=== PATIENT | male | born 1990 | race African-American/Black ===

== ENCOUNTER 2023-04-12 23:40 | Emergency (ER) | payer MEDICAID, OTHER ==
[~2023-04-12] VITALS: Ht 177.8 cm; Wt 87.0 kg
[2023-04-13] MEDS ORDERED: CEPHALEXIN 250MG CAPSULE PO ONE (00:45)
[2023-04-13] MEDS ORDERED: TETANUS, DIPHTHERIA, PERTUSSIS VAC/PF 0.5ML (>10YR OLD) IM ONE (00:45)
[2023-04-13] MEDS ORDERED: SULFAMETHOXAZOLE/TRIMETHOPRIM 800/160MG TABLET PO ONE (00:45)
[2023-04-13] MEDS ORDERED: SULF1TAB48 MT (02:10)
[2023-04-13] MEDS ORDERED: CEPH500C2 MT (02:10)
[2023-04-13 02:16] VITALS: BP 123/69
[2023-04-14] MEDS ORDERED: SILV50CR31 TP (23:58)
== END 2023-04-13 02:18 | disposition home or self-care (01) ==
LOC: ER 23:40
DX: T22.111A Burn of first degree of right forearm, initial encounter (principal); X08.8XXA Exposure to other specified smoke, fire and flames, initial encounter; Y93.89 Activity, other specified; Y92.89 Other specified places as the place of occurrence of the external cause; Y99.8 Other external cause status
CPT/HCPCS: 90471; 90715; 99283

== ENCOUNTER 2023-04-14 23:39 | Emergency (ER) | payer MEDICAID, OTHER ==
[~2023-04-14] VITALS: Ht 177.8 cm; Wt 90.2 kg
[~2023-04-14 23:39] MED LIST: CEPH500C2 MT; SULF1TAB48 MT
[2023-04-14 23:46] VITALS: BP 129/71
[2023-04-14] MEDS ORDERED: SILV50CR31 TP (23:58)
== END 2023-04-15 01:30 | disposition home or self-care (01) ==
LOC: ER 23:39
DX: T22.011D Burn of unspecified degree of right forearm, subsequent encounter (principal); X58.XXXD Exposure to other specified factors, subsequent encounter
CPT/HCPCS: 99281; 99283

== ENCOUNTER 2023-08-04 23:09 | Emergency (ER) | payer SELFPAY ==
[~2023-08-04] VITALS: Ht 177.8 cm; Wt 92.0 kg
[~2023-08-04 23:09] MED LIST changes: +SILV50CR31 TP
[2023-08-04] MEDS ORDERED: CEFTRIAXONE SODIUM 1 G/VIAL IM ONE (23:30)
[2023-08-04 23:42] VITALS: BP 124/74; PULSE 78; RESP 18; TEMP 98.3; O2SAT 99
[2023-08-05 00:13] LABS: CLARITY URINE TURBID (CLEAR); COLOR URINE YELLOW (YELLOW); GLUCOSE URINE NEGATIVE (NEGATIVE); KETONES URINE TRACE (NEGATIVE); LEUKOCYTE ESTERASE URINE 3+ (NEGATIVE); NITRITE URINE NEGATIVE (NEGATIVE); OCCULT BLOOD URINE TRACE (NEGATIVE); PROTEIN URINE NEGATIVE (NEGATIVE); SPECIFIC GRAVITY URINE 1.021 (1.005-1.030)
[2023-08-05] MEDS ORDERED: DOXY100C5 MT (00:20)
[2023-08-05 02:35] LABS: SQUAMOUS EPITHELIAL CELL URINE NONE SEEN /lpf (RARE/1+); WBC URINE TNTC /hpf (0-2)
[2023-08-05 02:38] LABS: BACTERIA URINE TRACE
== END 2023-08-05 01:56 | disposition home or self-care (01) ==
LOC: ER 23:09
DX: A64 Unspecified sexually transmitted disease (principal); F19.90 Other psychoactive substance use, unspecified, uncomplicated; Z20.2 Contact with and (suspected) exposure to infections with a predominantly sexual mode of transmission
CPT/HCPCS: 99283; 96372; 81003; 87086; J0696

== ENCOUNTER 2023-09-12 13:08 | Emergency (ER) | payer MEDICAID ==
[~2023-09-12] VITALS: Ht 177.8 cm; Wt 92.3 kg
[~2023-09-12 13:08] MED LIST changes: +DOXY100C5 MT
[2023-09-12 13:40] VITALS: O2SAT 97
[2023-09-12] MEDS ORDERED: DOXYCYCLINE HYCLATE 100MG CAPSULE PO ONE (14:45)
[2023-09-12] MEDS ORDERED: CEFTRIAXONE SODIUM 500 MG/VIAL IM ONE (14:45)
[2023-09-12] MEDS ORDERED: DOXY100C5 MT (15:49)
[2023-09-12 16:05] VITALS: BP 129/84; PULSE 82; RESP 19; TEMP 98.1
[2023-09-14 05:11] LABS: HIV SCREEN 4G Non Reactive (Non Reactive)
== END 2023-09-12 16:07 | disposition home or self-care (01) ==
LOC: ER 13:45
DX: Z11.3 Encounter for screening for infections with a predominantly sexual mode of transmission (principal)
CPT/HCPCS: 99283; 86592; 87389; 96372; J0696

== ENCOUNTER 2024-06-22 06:44 | Emergency (ER) | payer MEDICAID ==
[~2024-06-22] VITALS: Ht 177.8 cm; Wt 91.0 kg
[2024-06-22 07:10] VITALS: O2SAT 98
[2024-06-22] MEDS: IBUPROFEN 600MG TABLET PO NR (09:08)
[2024-06-22] MEDS ORDERED: IBUP-2029 MT (09:43)
[2024-06-22 09:53] VITALS: BP 148/90; PULSE 84; RESP 15; TEMP 98.1
== END 2024-06-22 09:55 | disposition home or self-care (01) ==
LOC: ER 06:44
DX: S62.300A Unspecified fracture of second metacarpal bone, right hand, initial encounter for closed fracture (principal); Z79.899 Other long term (current) drug therapy; X58.XXXA Exposure to other specified factors, initial encounter; Y93.89 Activity, other specified; Y92.89 Other specified places as the place of occurrence of the external cause; Y99.8 Other external cause status
CPT/HCPCS: 29125; 73130; 99283

== ENCOUNTER 2024-08-07 03:00 | Emergency (ER) | payer MEDICAID ==
[~2024-08-07] VITALS: Ht 180.3 cm; Wt 86.5 kg
[~2024-08-07 03:00] MED LIST changes: +IBUP-2029 MT
[2024-08-07 03:04] VITALS: TEMP 98.4; O2SAT 100
[2024-08-07 03:16] VITALS: O2SAT 98
[2024-08-07 04:18] VITALS: BP 140/94; PULSE 113; RESP 20
[2024-08-07] MEDS: IBUPROFEN 400MG TABLET PO NR (04:18)
[2024-08-07] MEDS ORDERED: NAPR-420 MT (06:07)
== END 2024-08-07 06:34 | disposition home or self-care (01) ==
LOC: ER 03:08
DX: S62.300A Unspecified fracture of second metacarpal bone, right hand, initial encounter for closed fracture (principal); Z00.00 Encounter for general adult medical examination without abnormal findings; Y04.0XXA Assault by unarmed brawl or fight, initial encounter; Y93.89 Activity, other specified; Y92.89 Other specified places as the place of occurrence of the external cause; Y99.8 Other external cause status
CPT/HCPCS: 29125; 73130; 99283

== ENCOUNTER 2024-11-15 12:01 | Emergency (ER) | payer MEDICAID ==
[~2024-11-15] VITALS: Ht 177.8 cm; Wt 93.0 kg
[~2024-11-15 12:01] MED LIST changes: +NAPR-420 MT
[2024-11-15 12:03] VITALS: O2SAT 96
[2024-11-15 12:04] VITALS: BP 116/68; PULSE 74; RESP 16; TEMP 98; O2SAT 99
[2024-11-15 12:33] LABS: EOSINOPHILS % 1.8 % (0.0-5.0); HEMATOCRIT. 39.7 % (42.0-52.0); HEMOGLOBIN. 12.8 g/dL (14.0-18.0); LYMPHOCYTES % 44.3 % (20.0-50.0); MEAN CORPUSCULAR HEMOGLOBIN 28.3 pg (28.0-32.0); MEAN CORPUSCULAR HGB CONC 32.3 g/dL (31.0-37.0); MEAN CORPUSCULAR VOLUME 87.6 fL (80.0-94.0); MEAN PLATELET VOLUME 7.3 fl (7.4-10.4); NEUTROPHILS % 42.9 % (40.0-76.0); PLATELET 318 x1000/uL (130-400); RED BLOOD CELL COUNT 4.53 mill/uL (4.7-6.1); RED CELL DISTRIBUTION WIDTH 12.9 % (11.6-14.6); WHITE BLOOD COUNT 4.8 x1000/uL (4.5-11.0)
[2024-11-15 12:56] LABS: CHLORIDE 106 mEq/L (98-107); POTASSIUM 4.1 mEq/L (3.5-5.1); SODIUM 140 mEq/L (136-145)
[2024-11-15 12:57] LABS: CARBON DIOXIDE 27 mEq/L (21-32)
[2024-11-15 12:58] LABS: CALCIUM 9.6 mg/dL (8.7-10.4)
[2024-11-15 13:03] LABS: CREATININE 1.2 mg/dL (0.6-1.3); GLUCOSE 96 mg/dL (70-105); UREA NITROGEN BLOOD 19 mg/dL (9-23)
[2024-11-15 15:54] LABS: CLARITY URINE CLEAR (CLEAR); COLOR URINE YELLOW (YELLOW); GLUCOSE URINE NEGATIVE (NEGATIVE); KETONES URINE NEGATIVE (NEGATIVE); LEUKOCYTE ESTERASE URINE NEGATIVE (NEGATIVE); NITRITE URINE NEGATIVE (NEGATIVE); OCCULT BLOOD URINE NEGATIVE (NEGATIVE); PROTEIN URINE NEGATIVE (NEGATIVE); SPECIFIC GRAVITY URINE 1.018 (1.005-1.030)
[2024-11-15 17:03] LABS: BACTERIA URINE TRACE; RBC URINE NONE SEEN /hpf (0-2); SQUAMOUS EPITHELIAL CELL URINE FEW /lpf (RARE/1+); WBC URINE 0-2 /hpf (0-2)
[2024-11-20 04:11] LABS: CHLAMYDIA TRACHOMATIS NAA Negative (Negative); NEISSERIA GONORRHOEAE NAA Negative (Negative)
== END 2024-11-15 15:52 | disposition left against medical advice (07) ==
LOC: ER 12:01
DX: R10.84 Generalized abdominal pain (principal); F19.90 Other psychoactive substance use, unspecified, uncomplicated; Z11.3 Encounter for screening for infections with a predominantly sexual mode of transmission; Z79.899 Other long term (current) drug therapy
CPT/HCPCS: 36415; 80048; 81003; 85025; 87491; 87591; 99283